=== PATIENT | female | born 1940 | race Caucasian/White ===

== ENCOUNTER 2019-10-14 09:23 | Day surgery (SDC) | payer MEDICARE, OTHER, SELFPAY ==
--- NOTE | 2019-09-29 16:02 | PM.PREOP ---
Pre-operative Note Interval Note History & Physical reviewed/Exam performed by Physician: Yes Changes to H&P: No
--- NOTE | 2019-10-13 19:42 | PM.PREOP ---
Pre-operative Note Interval Note History & Physical reviewed/Exam performed by Physician: Yes Changes to H&P: No
--- NOTE | 2019-10-13 19:43 | PM.PREOP ---
Pre-operative Note Interval Note History & Physical reviewed/Exam performed by Physician: Yes Changes to H&P: No
[2019-10-14] MEDS: CATARACT EYE COMPOUND (10 DROPS/SYRINGE) 3 DROPS EYE-OP (09:52)
[2019-10-14] MEDS: PROPARACAINE 0.5% OPHTH SOL 2 DROPS EYE-OP (09:52)
[2019-10-14 09:56] VITALS: BP 122/65; PULSE 63; RESP 16; TEMP 36.3; O2SAT 98
[2019-10-14 09:57] VITALS: BMI 21.9
--- NOTE | 2019-10-14 10:50 | PM.OP.1 ---
Operative Date/Time/Diagnoses Date of procedure: 10/14/19 Time of procedure: 10:45 Procedure & Clinicians Procedure: Preoperative diagnoses: 1. Left nuclear sclerotic and advanced cortical cataract. 2. Ptosis left lid more than right. 3. History of myocardial infarction. Postoperative diagnoses: 1. Cataract removed by phacoemulsification with placement of posterior chamber intraocular lens. Procedure: Phacoemulsification with posterior chamber intraocular lens implant Surgeon: Cheryl Borrero MD Complications: None Specimen: None Implant: [id number] Blood loss: None Anesthesia: Retrobulbar with monitored standby Description of procedure: Patient presents with a complaint of decreased vision due to cataract which is affecting activities of daily living. She is having significant glare from the diffuse peripheral anterior cortical cataract. The patient wants surgery to improve vision. She also has significant ptosis and cataract should be removed prior to proceeding to lid surgery for full visual rehabilitation. The patient was taken to the operating room and given IV sedation. A retrobulbar block consisting of 6 cc of 2% xylocaine without epinephrine mixed half and half with 0.5% Marcaine with 1 cc of hyaluronidase added is placed between the medial and lateral 1/3 of the inferior orbital rim. The eye is manually massaged for 30 sec, prepped using Betadine solution, and draped in the usual sterile fashion. Temporal approach was made, a 1 mm side-port incision was made 90? from the proposed clear corneal incision position. Phenylephrine 1.5% mixed with 1% xylocaine 0.2 cc was placed into the anterior chamber. Viscoat followed by Healon was then placed. A 2.6 mm clear incision with a 2.6 mm blade was placed. A 360 degree capsulorrhexis style capsulotomy was then performed with a cystitome needle on a Healon. The red reflex was reduced but a well-centered capsulorrhexis was performed without complication. The zonules were also slightly loose but held intact. Hydrodelineation and hydrodissection were performed. The phacoemulsification unit is introduced, and sculpting notice used to groove the central lens. It is then removed in chopping mode. Epi nucleus is removed with epinuclear mode and irrigation aspiration was used to remove the peripheral cortex. The posterior capsule is polished. The intraocular lens is selected, inspected, power confirmed, and placed in the posterior chamber. The wound was stromally hydrated and tested for leaks, there was none and it was left sutureless. Vigamox 0.1 cc was placed into the anterior chamber. Kenalog 0.2 cc was placed in the superior subconjunctival space. A drop of antibiotic and was placed and the eye was patched and shielded. The patient was stable and returned to the recovery room in excellent condition. Dictated by: Cheryl Borrero MD Copy to: [facility] Same procedure as scheduled: Yes
[2019-10-14] MEDS: HYALURONATE SODIUM 10 MG/ML SYRINGE INJ (11:11)
[2019-10-14] MEDS: CHONDROIDTIN/SOD HYALURONATE 1.05 ML SYRINGE INTRAOCULA (11:11)
[2019-10-14] MEDS: LIDOCAINE 2% 4 ML, BUPIVACAINE 0.5% (PF) 4 ML, HYALURONIDASE 150 UNIT INJ (11:11)
[2019-10-14] MEDS: PHENYLEPHRINE/LIDOCAINE VIAL (OR) 0.2 ML EYE-OP (11:12)
[2019-10-14] MEDS: TRIAMCINOLONE 50 MG/5 ML VIAL INJ (11:12)
[2019-10-14] MEDS: MOXIFLOXACIN INJ 5 MG/ML VIAL EYE-OP (11:12)
[2019-10-14] MEDS: BALANCED SALT IRRIG SOLN NO.2 500 ML, EPINEPHrine 1 MG IRR (11:13)
[2019-10-14] MEDS: ERYTHROMYCIN OPHTH 1 GM OINT 1 APPLIC EYE-LEFT (11:14)
[2019-10-14 11:55] VITALS: BP 119/61; PULSE 54; RESP 14; TEMP 36.1; O2SAT 96
== END 2019-10-14 12:11 | disposition home or self-care (01) ==
LOC: OR 09:27
PROVIDERS: Visit Provider Ophthalmology
PROC: (CPT 66984; principal; 2019-10-14 10:45)
DX: H25.812 Combined forms of age-related cataract, left eye (principal); H35.372 Puckering of macula, left eye; H02.403 Unspecified ptosis of bilateral eyelids; D22.9 Melanocytic nevi, unspecified; I25.2 Old myocardial infarction
CPT/HCPCS: 66984; J0171; J2704; J3301; J3470

== ENCOUNTER → 2021-10-05 14:27 | Outpatient (CLI) | payer MEDICARE, OTHER, SELFPAY ==
--- NOTE | 2021-10-05 14:30 | DI.RAD.S_ITS ---
PROCEDURE: XR ANKLE LT MIN 3V INDICATIONS: L ankle pain and swelling x4 weeks, pain at lateral mal TECHNIQUE: 3 views of the ankle were acquired. COMPARISON: None. FINDINGS: Bones: No fractures or dislocations. Ankle mortise is normally aligned. No suspicious bony lesions. Soft tissues: No tibiotalar joint effusion. Achilles tendon appears normal. IMPRESSION: No acute fracture. No osseous lesion. If symptoms and/or clinical suspicion for pathology persist, further assessment with repeat, or advanced imaging (e.g., CT, MRI, or bone scan) may be helpful for further assessment. Dictated by: Jordan Gong M.D. on 10/05/2021 at 15:18 Approved by: Jordan Gong M.D. on 10/05/2021 at 15:19
== END ==
PROVIDERS: Referring Provider Physician Assistant; Visit Provider Physician Assistant
DX: M25.472 Effusion, left ankle (principal); M25.572 Pain in left ankle and joints of left foot
CPT/HCPCS: 73610